=== PATIENT | female | born 1985 | race American Indian/Alaskan Native ===

== ENCOUNTER 2018-10-13 07:04 | Outpatient (CLI) | payer OTHER | END 2018-10-13 17:37 | disposition home or self-care (01) | LOC: OBS/DEL 07:04 | DX: O24.414 Gestational diabetes mellitus in pregnancy, insulin controlled (principal); Z34.83 Encounter for supervision of other normal pregnancy, third trimester; O36.5930 Maternal care for other known or suspected poor fetal growth, third trimester, not applicable or unspecified ==

== ENCOUNTER 2018-10-20 08:00 | Inpatient (IN) | payer OTHER ==
[~2018-10-20] VITALS: Ht 157.5 cm; Wt 132.4 kg
[2018-10-20] MEDS ORDERED: METFORMIN HCL500 MG PO (10:13)
[2018-10-20] MEDS ORDERED: PRENATAL TABLE1 EAC1 PO (10:14)
[2018-10-20] MEDS ORDERED: ASA81 MG PO (10:14)
== END 2018-10-22 14:14 | disposition home or self-care (01) | DRG 783 ==
LOC: LDR 08:00 → O/R 08:00 → OB/GYN 08:00 → O/R 14:04 → OB/GYN 18:48
PROVIDERS: ADMIT Obstetrics & Gynecology
PROC: 0UL70ZZ Occlusion of Bilateral Fallopian Tubes, Open Approach (ICD-10-PCS; 2018-10-20)
PROC: 4A1HXCZ Monitoring of Products of Conception, Cardiac Rate, External Approach (ICD-10-PCS; 2018-10-20)
PROC: 10D00Z1 Extraction of Products of Conception, Low, Open Approach (ICD-10-PCS; principal; 2018-10-20 11:00)
DX: O82 Encounter for cesarean delivery without indication (principal); O24.12 Pre-existing type 2 diabetes mellitus, in childbirth; E11.9 Type 2 diabetes mellitus without complications; Z3A.38 38 weeks gestation of pregnancy; Z37.0 Single live birth; Z79.84 Long term (current) use of oral hypoglycemic drugs; Z30.2 Encounter for sterilization